=== PATIENT | male | born 1980 | race Caucasian/White ===

== ENCOUNTER 2019-12-18 06:53 | Emergency (ER) | payer MEDICAID ==
[~2019-12-18] VITALS: Ht 170.2 cm; Wt 190.0 kg
[2019-12-18] MEDS ORDERED: IBUPROFEN 600MG TABLET PO ONE (07:30)
[2019-12-18 09:47] VITALS: BP 115/64
== END 2019-12-18 09:47 | disposition home or self-care (01) ==
LOC: ER 06:53
DX: J02.8 Acute pharyngitis due to other specified organisms (principal); Z87.19 Personal history of other diseases of the digestive system
CPT/HCPCS: 71045; 87070; 87430; 99284